=== PATIENT | female | born 1990 | race Caucasian/White ===

== ENCOUNTER 2020-07-21 00:39 | Emergency (ER) | payer BC ==
[~2020-07-21] VITALS: Ht 165.1 cm; Wt 52.2 kg
[2020-07-21 01:00] LABS: *BILIRUBIN,URIN NEGATIVE (NEGATIVE); *BLOOD, URINE NEGATIVE (NEGATIVE); *KETONES,URINE NEGATIVE (NEGATIVE); *UROBILINOGEN,URINE 0.2 E.U./dl (NORMAL); LEUKOCYTE ESTERASE ,URINE TRACE (NEGATIVE); NITRITE, URINE NEGATIVE (NEGATIVE); PH,URINE 7.5 (5.0-8.0); UGLUCOSE NEGATIVE (NEGATIVE)
[2020-07-21 01:02] LABS: *CLARITY,URINE CLEAR (CLEAR); *COLOR,URINE STRAW (YELLOW); *URINE HCG, QUAL NEGATIVE (NEGATIVE)
[2020-07-21 01:08] LABS: BACTERIA,URINE NONE SEEN /HPF (NONE SEEN); RBC,URINE 0-3 /HPF (0-3); SQUAMOUS EPITHELIAL CELL,UR MODERATE /HPF (NONE SEEN)
[2020-07-21 01:46] VITALS: BP 135/85
== END 2020-07-21 01:47 | disposition home or self-care (01) ==
LOC: ER 00:48
DX: B37.3 Candidiasis of vulva and vagina (principal)
CPT/HCPCS: 84703; 87081; 87086; 87110; 87210; A4663